=== PATIENT | female | born 2000 ===

== ENCOUNTER 2022-06-07 22:44 | Emergency (ER) | payer OTHER, SELFPAY ==
[2022-06-07 23:07] VITALS: BP 127/86; PULSE 117; RESP 16; TEMP 36.8; O2SAT 100; BMI 24.4
--- NOTE | 2022-06-07 23:44 | ED.GENADULT ---
HPI - General Adult General Chief complaint: Overdose Stated complaint: ETOH Time Seen by Provider: 06/07/22 23:31 Source: patient Mode of arrival: ambulatory Limitations: no limitations History of Present Illness HPI narrative: 21-year-old female coming in today after ingesting weed butter that was used to make a south drank that she had with her friends today. She states she has never been high before. She states that she started vomiting a shortly after she started feeling high. Unclear if it was because she was scared or if she just did not feel good. She says that she vomited 2 times. She just wants to make sure that ?it is all out of her system?. She did not drink any alcohol today. She feels high, but no other concerns. Related Data Home Medications Medication Instructions Recorded Confirmed No Known Home Medications 06/07/22 06/07/22 Allergies Allergy/AdvReac Type Severity Reaction Status Date / Time No Known Drug Allergies Allergy Verified 06/07/22 23:19 Review of Systems Status of ROS: Reports: 6 or more systems reviewed and unremarkable except as noted in History and below PFSH [facility] Social History Smoking Status: Never smoker How often do you have a drink containing alcohol: never AUDIT-C Alcohol total score: 0 Non-prescribed substance use: denies use Exam Narrative: Exam Narrative: Well-nourished well-developed patient, anxious. Alert and oriented x3. Answers questions appropriately. Mood and affect are appropriate. Thoughts are goal oriented and rational. No tangential or magical thinking noted. Patient speaks in full sentences without needing to catch her breath. Speech is slurred. HEENT: Normocephalic atraumatic. Pupils are equally round reactive to light. Extraocular muscles are intact. Conjunctivae glassy and injected bilaterally. Moist mucous membranes. Posterior pharynx is normal. Neck is soft without any lymphadenopathy or thyromegaly. No masses are appreciated. Cardiovascular: Heart is tachycardic with regular rhythm, S1 and S2 are present without any murmurs. Lungs: Clear to auscultation bilaterally no wheezes rhonchi or rales are appreciated. Patient takes deep breaths without any discomfort. Abdomen: Soft and nontender nondistended with normal bowel sounds. Extremities: Bilateral lower extremities are without edema. Skin: Well perfused without any obvious rashes. Const: Vital Signs, click to edit/add: Vital Signs - 24 hr 06/07/22 23:07 Temperature 98.2 F Pulse Rate [Right Pulse Oximeter] 117 H Respiratory Rate 16 Blood Pressure [Ri ght Upper Arm] 127/86 Pulse Oximetry 100 Oxygen Delivery Me thod Room Air Course Course Hospital Course: I did recheck her pulse, it had come down to 105. Given her nausea and anxiety about being intoxicated, we did go and start an IV and give her 500 mL of normal saline along with Zofran. She did feel better. Vital Signs Vital signs: Initial Vital Signs Temperature 98.2 F 06/07/22 23:07 Temperature Source Temporal Artery Scan 06/07/22 23:07 Pulse Rate 117 H 06/07/22 23:07 Respiratory Rate 16 06/07/22 23:07 Blood Pressure 127/86 06/07/22 23:07 Blood Pressure Mean 99 06/07/22 23:07 Blood Pressure Position Sitting 06/07/22 23:07 Pulse Oximetry 100 06/07/22 23:07 Oxygen Delivery Method 06/07/22 23:07 Vital Signs Temperature 98.2 F 06/07/22 23:07 Pulse Rate 117 H 06/07/22 23:07 Respiratory Rate 16 06/07/22 23:07 Blood Pressure 127/86 06/07/22 23:07 Pulse Oximetry 100 06/07/22 23:07 Oxygen Delivery Method 06/07/22 23:07 Temperature 98.2 F 06/07/22 23:07 Pulse Rate 117 H 06/07/22 23:07 Respiratory Rate 16 06/07/22 23:07 Blood Pressure 127/86 06/07/22 23:07 Pulse Oximetry 100 06/07/22 23:07 Oxygen Delivery Method 06/07/22 23:07 Medical Decision Making MDM Narrative Medical decision making narrative: Acute marijuana intoxication. Patient feeling better. Discharged home. She does have several roommates. Discharge Plan Discharge Clinical Impression: Cannabis intoxication Patient Disposition: Home w/ Parent or Adult Condition: Stable Prescriptions: No Action No Known Home Medications Stand Alone Forms: [facility] Info Instructions
[2022-06-08] MEDS: 0.9 % SODIUM CHLORIDE 500 ML 500 ML 1000 ML IV
[2022-06-08] MEDS: ONDANSETRON 2 MG/ML inj 4 MG IVP
[2022-06-08 00:40] VITALS: BP 107/62; PULSE 76; RESP 16; O2SAT 98
== END 2022-06-08 00:55 | disposition home or self-care (01) ==
PROVIDERS: Emergency Provider Family Medicine
DX: F12.929 Cannabis use, unspecified with intoxication, unspecified (principal)
CPT/HCPCS: 96374; 99284; J2405; J7120

== ENCOUNTER 2023-09-08 11:30 | Outpatient (RCR) | payer OTHER, SELFPAY | END 2023-11-11 09:36 | disposition home or self-care (01) | PROVIDERS: Visit Provider Family Medicine | DX: M25.562 Pain in left knee (principal); G89.29 Other chronic pain; M76.52 Patellar tendinitis, left knee; M62.81 Muscle weakness (generalized); Z51.89 Encounter for other specified aftercare | CPT/HCPCS: 97110; 97161 ==